=== PATIENT | male | born 1995 | race Caucasian/White ===

== ENCOUNTER 2019-10-14 15:55 | Emergency (ER) | payer SELFPAY ==
--- NOTE | 2019-10-14 19:34 | EDM.PDOC ---
ED HPI GENERAL MEDICAL PROBLEM - General Chief Complaint: Skin Complaint Stated Complaint: LUMP ON TESTICLE Time Seen by Provider: 10/14/19 17:53 Source of Information: Reports: Patient History Limitations: Reports: No Limitations - History of Present Illness INITIAL COMMENTS - FREE TEXT/NARRATIVE: Patient is a 24-year-old male who presents to the emergency department with complaints of a painful "lump "in his left testicle. He states his lump has been present since he was 17 years old and is intermittently painful. He verbalizes that his mother would not take him to have it checked and that the one time they took him to have it checked, they insisted on leaving the ER before an ultrasound could be done. He has not had any questionable sexual contacts and is in a monogamous relationship. He denies any fever or chills. Pain does not radiate beyond the scrotum. He has not noticed any excessive swelling or warmth to the area. He denies any abnormal discharge from the urethra. When asked to demonstrate location of the lump, patient had a difficult time locating it. States that the pain is only present when he masturbates frequently. Left Perineal Area Pain Score (Numeric/FACES): 10 - Related Data Allergies Allergy/AdvReac Type Severity Reaction Status Date / Time No Known Allergies Allergy Verified 10/14/19 17:53 Home Meds: Home Meds . [No Known Home Meds] 10/14/19 [History] Past Medical History - Past Health History Medical/Surgical History: Denies Medical/Surgical History Social & Family History - Tobacco Use Smoking Status *Q: Never Smoker Second Hand Smoke Exposure: No - Caffeine Use Caffeine Use: Reports: Energy Drinks, Soda - Recreational Drug Use Recreational Drug Use: No ED ROS GENERAL - Review of Systems Review Of Systems: Comprehensive ROS is negative, except as noted in HPI. ED EXAM, SKIN/RASH Exam: See Below Exam Limited By: No Limitations General Appearance: Alert, WD/WN, No Apparent Distress Respiratory/Chest: No Respiratory Distress, Lungs Clear, Normal Breath Sounds, No Accessory Muscle Use, Chest Non-Tender Cardiovascular: Normal Peripheral Pulses, Regular Rate, Rhythm, No Edema, No Gallop, No JVD, No Murmur, No Rub (Male) Exam: No Hernia, Normal Inspection, Scrotum Tenderness (L). No: Scrotum Tenderness (R), Testicular Mass, Testicular Tenderness (L), Testicular Tenderness (R), Urethral Discharge Neurological: Alert, Oriented, CN II-XII Intact, Normal Cognition, Normal Gait, Normal Reflexes, No Motor/Sensory Deficits Psychiatric: Normal Affect, Normal Mood Skin: Warm, Dry, Intact, Normal Color, No Rash Course - Vital Signs Last Recorded V/S: Last Vital Signs Temp 97.8 F 10/14/19 17:54 Pulse 84 10/14/19 17:54 Resp 18 10/14/19 17:54 BP 140/93 H 10/14/19 17:54 Pulse Ox - Orders/Labs/Meds Labs: Laboratory Tests 10/14/19 10/14/19 10/14/19 Range/Units 18:22 18:22 18:50 WBC 15.17 H (4.23-9.07) K/mm3 RBC 5.13 (4.63-6.08) M/mm3 Hgb 15.7 (13.7-17.5) gm/dl Hct 45.6 (40.1-51.0) % MCV 88.9 (79.0-92.2) fl MCH 30.6 (25.7-32.2) pg MCHC 34.4 (32.2-35.5) g/dl RDW Std Deviation 42.8 (35.1-43.9) fL Plt Count 332 (163-337) K/mm3 MPV 9.1 L (9.4-12.3) fl Neut % (Auto) 69.0 H (34.0-67.9) % Lymph % (Auto) 22.2 (21.8-53.1) % [place] % (Auto) 8.1 (5.3-12.2) % Eos % (Auto) 0.1 L (0.8-7.0) Baso % (Auto) 0.3 (0.1-1.2) % Neut # (Auto) 10.46 H (1.78-5.38) K/mm3 Lymph # (Auto) 3.37 (1.32-3.57) K/mm3 [place] # (Auto) 1.23 H (0.30-0.82) K/mm3 Eos # (Auto) 0.02 L (0.04-0.54) K/mm3 Baso # (Auto) 0.04 (0.01-0.08) K/mm3 Manual Slide Review Normal smear Sodium (136-145) mEq/L Potassium (3.5-5.1) mEq/L Chloride (98-107) mEq/L Carbon Dioxide (21-32) mEq/L Anion Gap (5-15) BUN (7-18) mg/dL Creatinine (0.7-1.3) mg/dL Est Cr Clr Drug Dosing mL/min Estimated GFR (MDRD) (>60) mL/min BUN/Creatinine Ratio (14-18) Glucose (74-106) mg/dL Calcium (8.5-10.1) mg/dL Total Bilirubin (0.2-1.0) mg/dL AST (15-37) U/L ALT (16-63) U/L Alkaline Phosphatase (46-116) U/L Total Protein (6.4-8.2) g/dl Albumin (3.4-5.0) g/dl Globulin gm/dL Albumin/Globulin Ratio (1-2) Urine Color Yellow (Yellow) Urine Appearance Clear (Clear) Urine pH 7.0 (5.0-8.0) Ur Specific [place] 1.025 (1.005-1.030) Urine Protein Negative (Negative) Urine Glucose (UA) Negative (Negative) Urine Ketones Negative (Negative) Urine Occult Blood Negative (Negative) Urine Nitrite Negative (Negative) Urine Bilirubin Negative (Negative) Urine Urobilinogen 0.2 (0.2-1.0) Ur Leukocyte Esterase Negative (Negative) Urine RBC 0-5 (0-5) /hpf Urine WBC 0-5 (0-5) /hpf Ur Squamous Epith Cells Not seen (0-5) /hpf Urine Bacteria Occasional (FEW) /hpf Urine Mucus Few (FEW) /hpf C trachomatis DNA (PCR) Not detected N gonorrhoeae DNA (PCR) Not detected 10/14/19 Range/Units 18:50 WBC (4.23-9.07) K/mm3 RBC (4.63-6.08) M/mm3 Hgb (13.7-17.5) gm/dl Hct (40.1-51.0) % MCV (79.0-92.2) fl MCH (25.7-32.2) pg MCHC (32.2-35.5) g/dl RDW Std Deviation (35.1-43.9) fL Plt Count (163-337) K/mm3 MPV (9.4-12.3) fl Neut % (Auto) (34.0-67.9) % Lymph % (Auto) (21.8-53.1) % [place] % (Auto) (5.3-12.2) % Eos % (Auto) (0.8-7.0) Baso % (Auto) (0.1-1.2) % Neut # (Auto) (1.78-5.38) K/mm3 Lymph # (Auto) (1.32-3.57) K/mm3 [place] # (Auto) (0.30-0.82) K/mm3 Eos # (Auto) (0.04-0.54) K/mm3 Baso # (Auto) (0.01-0.08) K/mm3 Manual Slide Review Sodium 141 (136-145) mEq/L Potassium 4.0 (3.5-5.1) mEq/L Chloride 103 (98-107) mEq/L Carbon Dioxide 28 (21-32) mEq/L Anion Gap 14.0 (5-15) BUN 13 (7-18) mg/dL Creatinine 1.1 (0.7-1.3) mg/dL Est Cr Clr Drug Dosing 127.13 mL/min Estimated GFR (MDRD) > 60 (>60) mL/min BUN/Creatinine Ratio 11.8 L (14-18) Glucose 97 (74-106) mg/dL Calcium 9.9 (8.5-10.1) mg/dL Total Bilirubin 0.3 (0.2-1.0) mg/dL AST 18 (15-37) U/L ALT 25 (16-63) U/L Alkaline Phosphatase 111 (46-116) U/L Total Protein 8.7 H (6.4-8.2) g/dl Albumin 4.3 (3.4-5.0) g/dl Globulin 4.4 gm/dL Albumin/Globulin Ratio 1.0 (1-2) Urine Color (Yellow) Urine Appearance (Clear) Urine pH (5.0-8.0) Ur Specific [place] (1.005-1.030) Urine Protein (Negative) Urine Glucose (UA) (Negative) Urine Ketones (Negative) Urine Occult Blood (Negative) Urine Nitrite (Negative) Urine Bilirubin (Negative) Urine Urobilinogen (0.2-1.0) Ur Leukocyte Esterase (Negative) Urine RBC (0-5) /hpf Urine WBC (0-5) /hpf Ur Squamous Epith Cells (0-5) /hpf Urine Bacteria (FEW) /hpf Urine Mucus (FEW) /hpf C trachomatis DNA (PCR) N gonorrhoeae DNA (PCR) - Re-Assessments/Exams Free Text/Narrative Re-Assessment/Exam: 10/14/19 21:48 Patient's work-up was found to be grossly unremarkable. Ultrasound of the scrotum was negative for any acute abnormalities. Recommend the patient establish care with a primary care provider and follow the symptoms. Departure - Departure Time of Disposition: 21:48 Disposition: Home, Self-Care 01 Condition: Good Clinical Impression: Pain in scrotum - Discharge Information *PRESCRIPTION DRUG MONITORING PROGRAM REVIEWED*: No *COPY OF PRESCRIPTION DRUG MONITORING REPORT IN PATIENT BRYCE: No Instructions: Testicular Self-Exam Referrals: PCP,None [Primary Care Provider] - Forms: ED Department Discharge Additional Instructions: You were seen in the emergency department today for chronic left scrotum pain. Your work-up included blood work, urinalysis, gonorrhea and chlamydia test, and an ultrasound of the scrotum. This was found to be normal. While the cause of your pain is not definite, it may be related to the trauma of masturbation. Recommend that you continue to follow your symptoms. Also recommend that you establish care with a primary care provider. You have been provided a list of clinic providers available. Return to the ER as needed. Sepsis Event Note - Evaluation Sepsis Screening Result: No Definite Risk - Focused Exam Date Exam was Performed: 10/15/19 Time Exam was Performed: 12:03
--- NOTE | 2019-10-14 20:36 | US ---
Testicular ultrasound: Multiple real-time images of the testicles were obtained. Testicles have a normal ultrasound appearance. No intratesticular mass is seen. No epididymal cyst is seen. Minimal fluid around the testicle is seen felt to be within normal limits. Both arterial and venous blood flow are seen within testicles. Right testicle: 4.3 x 2.6 x 3.0 cm Left testicle: 4.0 x 2.7 x 2.9 cm Impression: 1. No abnormality is identified on testicular ultrasound exam. Diagnostic code #1 This report was dictated in MDT
[2019-10-14 21:36] LABS: C. TRACHOMATIS BY PCR NOT DETECTED; N. GONORRHOEAE BY PCR NOT DETECTED
== END 2019-10-14 21:55 | disposition home or self-care (01) ==
LOC: JD.ED 15:55
DX: N50.82 Scrotal pain (principal)
CPT/HCPCS: 36415; 76870; 76870-26; 80053; 81001; 85025; 87491; 87591; 93975; 99282; 99284-25

== ENCOUNTER 2020-08-01 04:55 | Emergency (ER) | payer MEDICAID ==
--- NOTE | 2020-08-01 05:26 | EDM.PDOC ---
ED HPI GENERAL MEDICAL PROBLEM - General Chief Complaint: Genitourinary Problem Stated Complaint: GENITOURINARY PROBLEM Time Seen by Provider: 08/01/20 05:04 Source of Information: Reports: Patient History Limitations: Reports: No Limitations - History of Present Illness INITIAL COMMENTS - FREE TEXT/NARRATIVE: Mr. Escobar is a very pleasant 25-year-old gentleman who now presents the ED after the distal underside of his penis began bleeding after he had sexual intercourse with his girlfriend around midnight last night. He states that initially it bled quite a bit, but that he was able to get it to stop, but that it bled again a couple of times after that. He has had minimal pain, and the wound is not currently bleeding. No prior similar symptoms. Here in the ED, the patient's initial BP is found to be mildly elevated at 145/87, otherwise, he is hemodynamically stable, afebrile, saturating 100% on room air. Prior to this morning's injury, the patient denies having a recent fever, chills, sore throat, ear pain, nasal or sinus congestion, cough, dyspnea, chest pain, palpitations, nausea, vomiting, constipation, diarrhea, abdominal pain, urinary symptoms, recent weight gain or weight loss, recent bloody bowel movements or black bowel movements, recent joint aches, headaches, or rashes. The patient's PCP is FEDE Brody. He states that he has already received an influenza vaccine this season. Penis Pain Score (Numeric/FACES): 4 - Related Data Allergies Allergy/AdvReac Type Severity Reaction Status Date / Time No Known Allergies Allergy Verified 08/01/20 05:06 Home Meds: Home Meds . [No Known Home Meds] 10/14/19 [History] Past Medical History Psychiatric History: Reports: Other (See Below) (Intermittent explosive disorder) Endocrine/Metabolic History: Reports: Obesity/BMI 30+ Social & Family History - Tobacco Use Tobacco Use Status *Q: Never Tobacco User - Caffeine Use Caffeine Use: Reports: Energy Drinks, Soda - Alcohol Use Alcohol Use History: Yes Date/Time of Last Drink Comment: Previous excessive use, now none - Recreational Drug Use Recreational Drug Use: Yes Drug Use in Last 12 Months: No Recreational Drug Type: Reports: Marijuana/Hashish (last smoked when 11 yrs old) - Living Situation & Occupation Living situation: Reports: Single, with Significant Other (Girlfriend + her grandfather), with Family (4 yr old son) Occupation: Employed ([employer] at [employer]) ED ROS GENERAL - Review of Systems Review Of Systems: Comprehensive ROS is negative, except as noted in HPI. ED EXAM, RENAL/ - Physical Exam Exam: See Below Exam Limited By: No Limitations General Appearance: Alert, WD/WN, No Apparent Distress (Male) Exam: Other (The patient's penis is uncircumcised. When the foreskin was retracted, there is a small laceration to the penile frenulum, that is not bleeding. Suturing is not necessary.) Course - Vital Signs Last Recorded V/S: Last Vital Signs Temp 36.2 C 08/01/20 05:02 Pulse 82 08/01/20 05:02 Resp 16 08/01/20 05:02 BP 145/87 H 08/01/20 05:02 Pulse Ox 100 08/01/20 05:02 - Re-Assessments/Exams Free Text/Narrative Re-Assessment/Exam: 08/01/20 05:21 As above, the patient tore his penile frenulum while having intercourse with his girlfriend around midnight, related to a decrease in natural lubrication. The wound is not currently bleeding and does not require suturing. I am recommending that he keep his penis clean with ordinary soap and water when he bathes, and to avoid sexual intercourse until it heals completely. In the future, he may consider using a lubricant, particularly later during sexual intercourse when natural lubrication may diminish. Departure - Departure Time of Disposition: 05:22 Disposition: Home, Self-Care 01 Condition: Good Clinical Impression: Penile laceration - Discharge Information *PRESCRIPTION DRUG MONITORING PROGRAM REVIEWED*: Not Applicable *COPY OF PRESCRIPTION DRUG MONITORING REPORT IN PATIENT BRYCE: Not Applicable Referrals: Tamica Ambrocio PA-C [Primary Care Provider] - Additional Instructions: You were seen in the emergency room after your penis began bleeding after having sexual intercourse last night. On examination, you have a torn penile frenulum, also known as the "banjo string", which likely occurred due to excessive friction and stress on the skin of your penis during intercourse. Keep the wound clean with ordinary soap and water when you bathe. We advise against applying an antibiotic ointment. We recommend that you avoid sexual intercourse until the wound has healed completely. In the future, we recommend that you consider using a lubricant, particularly towards the end of sexual intercourse, when natural lubrication may diminish. If any other problems, please do not hesitate to return to the ER. Sepsis Event Note (ED) - Evaluation Sepsis Screening Result: No Definite Risk - Focused Exam Vital Signs: Vital Signs Temp Pulse Resp BP Pulse Ox 08/01/20 05:02 36.2 C 82 16 145/87 H 100
== END 2020-08-01 05:46 | disposition home or self-care (01) ==
LOC: JD.ED 04:55
DX: S31.21XA Laceration without foreign body of penis, initial encounter (principal); E66.9 Obesity, unspecified; X58.XXXA Exposure to other specified factors, initial encounter
CPT/HCPCS: 99282; 99283

== ENCOUNTER 2022-01-30 09:11 | Emergency (ER) | payer MEDICAID | END 2022-01-30 11:14 | disposition home or self-care (01) | LOC: JD.ED 09:11 | DX: S91.202A Unspecified open wound of left great toe with damage to nail, initial encounter (principal); L03.032 Cellulitis of left toe; E66.9 Obesity, unspecified; Z68.36 Body mass index [BMI] 36.0-36.9, adult; W45.0XXA Nail entering through skin, initial encounter | CPT/HCPCS: 99283 ==

== ENCOUNTER 2024-01-19 13:25 | Emergency (ER) | payer MEDICAID | END 2024-01-19 17:35 | disposition home or self-care (01) | LOC: JD.ED 13:25 | DX: S62.304A Unspecified fracture of fourth metacarpal bone, right hand, initial encounter for closed fracture (principal); S62.306A Unspecified fracture of fifth metacarpal bone, right hand, initial encounter for closed fracture; E66.9 Obesity, unspecified; Z88.8 Allergy status to other drugs, medicaments and biological substances; Z68.39 Body mass index [BMI] 39.0-39.9, adult; X58.XXXA Exposure to other specified factors, initial encounter | CPT/HCPCS: 29125; 73110-26-RT; 73110-RT; 73130-26-RT; 73130-RT; 99283; 99283-25 ==

== ENCOUNTER 2024-10-23 14:43 | Emergency (ER) | payer MEDICAID | END 2024-10-23 18:40 | disposition home or self-care (01) | LOC: JD.ED 14:43 | DX: N50.3 Cyst of epididymis (principal); E66.9 Obesity, unspecified; Z88.8 Allergy status to other drugs, medicaments and biological substances; Z68.38 Body mass index [BMI] 38.0-38.9, adult | CPT/HCPCS: 76870; 76870-26; 93975; 99284 ==

== ENCOUNTER 2024-12-05 23:23 | Emergency (ER) | payer MEDICAID ==
[2024-12-06] MEDS: Ketorolac 30 MG/ML SDV IM ONE (00:30)
== END 2024-12-06 00:33 | disposition home or self-care (01) ==
LOC: JD.ED 23:23
DX: L55.0 Sunburn of first degree (principal); Z88.8 Allergy status to other drugs, medicaments and biological substances; E66.9 Obesity, unspecified; Z68.37 Body mass index [BMI] 37.0-37.9, adult
CPT/HCPCS: 96372; 99282; J1885